=== PATIENT | female | born 1970 | race Two or more races ===

== ENCOUNTER 2023-03-18 10:55 | Emergency (ER) | payer OTHER ==
[~2023-03-18] VITALS: Ht 152.4 cm; Wt 61.2 kg
[2023-03-18] MEDS ORDERED: METFORMIN HCL1000 MG (10:58)
[2023-03-18] MEDS ORDERED: [UNRECOGNIZED DRUG - OTHER] (10:59)
[2023-03-18] MEDS ORDERED: DULOXETINE HCL40 MG (11:00)
== END 2023-03-18 13:50 | disposition home or self-care (01) ==
LOC: ER 10:55
DX: F41.9 Anxiety disorder, unspecified (principal); E11.9 Type 2 diabetes mellitus without complications; Z79.84 Long term (current) use of oral hypoglycemic drugs